=== PATIENT | female | born 2000 | race Caucasian/White ===

== ENCOUNTER 2023-01-26 21:48 | Emergency (ER) | payer BC ==
[2023-01-26] MEDS: Take Home: Acetaminophen/HYDROcodone 325-5 MG, 2 Tab Pack PO ONE (22:47)
== END 2023-01-26 22:50 | disposition home or self-care (01) ==
LOC: CC.ED 21:48
DX: S82.891D Other fracture of right lower leg, subsequent encounter for closed fracture with routine healing (principal); I10 Essential (primary) hypertension; Z88.0 Allergy status to penicillin; X50.1XXD Overexertion from prolonged static or awkward postures, subsequent encounter
CPT/HCPCS: 73610-RT; 99283; A9270-GY

== ENCOUNTER 2025-08-09 21:27 | Emergency (ER) | payer BC | END 2025-08-09 23:15 | disposition home or self-care (01) | LOC: CC.ED 21:27 | DX: S82.64XA Nondisplaced fracture of lateral malleolus of right fibula, initial encounter for closed fracture (principal); R20.1 Hypoesthesia of skin; I10 Essential (primary) hypertension; Z79.899 Other long term (current) drug therapy; Z88.1 Allergy status to other antibiotic agents; X58.XXXA Exposure to other specified factors, initial encounter | CPT/HCPCS: 73630-RT; 99283 ==